=== PATIENT | female | born 1980 | race Caucasian/White ===

== ENCOUNTER 2018-01-26 10:58 | Inpatient (IN) | payer OTHER ==
--- NOTE | 2018-01-26 11:47 | HP ---
General Information - General Information Maternal Age: 37 Grav: 2 Para: 1 SAB: 0 IEA: 0 Estimated Due Date: 01/12/18 Determined By: LMP Gestational Age in Weeks and Days: 42 Weeks and 0 Days Maternal Blood Type and Rh: O Positive - Results this Serology/RPR Result: Non-Reactive Rubella Result: Immune HBsAg Result: Negative HIV Result: Negative GBS Culture Result: Negative Past Medical History Delivery History: Hx Uncomplicated Vaginal Delivery Delivery History Comment: 2015 6lb 4oz female at [facility] [place] by Radha Segal LM Pertinent Past Medical History: See Records Past Medical History Comment: Asthma - no current medications Migraine Breast lump. Mammogram done 2015 WNL Seasonal allergies Hx depression/anxiety - no current medications Pertinent Past Surgical History: See Records Past Surgical History Comment: Hymen removal Tympanostomy tube insertion Pertinent Family History: See Records Family History Comment: Mother: Breast cancer, depression Father: Thrombotic micro angiopathy, antiphospholipid syndrome Sister: Thyroid PGF: degenerative hips MGM: HTN, polio MGF: Leukemia. due to pneumonia - Antepartal Records Antepartal Records: Reviewed, Uncomplicated - AMA age 37 at [facility]. NIPT/ MSAFP WNL. Post-dates Review of Systems Constitutional: Comfortable CV Complaint: No Respiratory: Shortness of Breath: No Gastrointestinal: No Nausea/Vomiting, Normal Bowel Movement Genitourinary: No Leaking Fluid Musculoskeletal: No Complaint Neurological: No Headache, No Visual Changes Movement: Normal Exam Allergies/Adverse Reactions: Allergies MS Sulfa Antibiotics [Sulfa Antibiotics] Adverse Reaction (Intermediate, Verified 04/15/16 19:57) Nausea And Vomiting BP: 131/75 HR: 87 T: 98.3 RR: 18 SpO2: 100% on RA - Measurements Height: 5 ft 6 in Weight: 208 lb Weight in lbs: [id number] Body Mass Index (BMI): 33.5 Pre- Weight: 170 lb Weight Gained This : 38 lbs and 0 ozs - Exam Abdomen: No Upper Quadrant Pain Breast: Breast Exam Deferred CVA: No CVA Tenderness Extremities: No Edema Heart: Normal Rhythm/Heart Sounds HEENT: No Significant Findings Lungs: Clear Bilaterally Rectal: Rectal Exam Deferred Reflexes: DTR 2+ Thyroid: No Thyromegaly - Abdominal Exam Abdomen Exam: Non-Tender - Ultrasound/Biophysical Profile Ultrasound Status: Not Done Targeted Exam Findings See L&D Outpatient Visit Provider Note for Findings: N/A Estimated Weight: 7.5-8lbs by Reinaldo Cervical Exam: 3cm Effacement: 80% Station: -1 Presenting Part: Vertex Membrane Status: Intact Sterile Speculum Exam: not done Bleeding/Discharge: None EFM Findings - External Monitor Findings Baseline Heart Rate: 135 External Monitor Findings: Accelerations Present, No Pattern of Variable or Late Decelerations - Isolated variable decel x 1. Recovered, Variability Moderate, Baseline Stable External Monitor Findings Comment: Category II FHT. Doubt metabolic acidemia. Bears close watching Contractions: Irregular, Mild Assessment/Plan - Reason for Visit Reason for Visit: IUP at 42 weeks here for postdates induction - Obstetrical Risk Factors Obstetrical Risk Factors: Post-Dates - Plan Plan: Induction Plan Comment: PARQ IV Pitocin induction vs. amniotomy. At this time pt and FOB agree to IV pitocin per low dose protocol. No strong plans. Will request pain mgmt if desired. Anticipate . Dr. Jeter aware of pt presence and condition. Agrees with plan to proceed with induction - Date/Time of Admission Date of Admission: 01/26/18 Time of Admission: 11:40
[2018-01-26] MEDS ORDERED: Oxytocin in LR* 20 UNITS/1,000 ML BAG IVPB SCH ×2 (12:00→19:00)
[2018-01-26 12:29] LABS: ABS Basophils 0 10^3/ul (0-0.2); ABS Eosinophils 0 10^3/ul (0-0.6); ABS Lymphocytes 1.5 10^3/ul (1.0-4.8); ABS Monocytes 0.5 10^3/ul (0-0.8); ABS Neutrophils 5.5 10^3/ul (1.5-7.7); ABS Nucleated RBC 0 10^3/ul; Eosinophil % 0.5 % (0-6); Hematocrit 37 % (35-47); Hemoglobin 12.7 g/dl (12.0-16.0); Lymphocyte % 19.9 % (25-47); Mean Corpuscular HGB Conc 34 g/dl (31-36); Mean Corpuscular Hemoglobin 30 pg (27-31); Mean Corpuscular Volume 87 fL (80-97); Mean Platelet Volume 9.5 um3 (7.4-10.4); Nucleated Red Blood Cells % 0.1; Platelet Count 172 10^3/ul (150-450); Red Blood Count 4.26 10^6/ul (4.00-5.40); Red Cell Distribution Width 16 % (10.5-15); White Blood Count 7.6 10^3/ul (3.5-10.8)
[2018-01-26] MEDS ORDERED: Ondansetron INJ* 2 MG/ML VIAL IV PRN (15:09)
[2018-01-26] MEDS ORDERED: OBEPIDURAL* 250 ML EPIDURAL ONE (15:37)
[2018-01-26] MEDS ORDERED: Phenylephrine IV* 40 MCG/ML 10 ML SYRINGE ONE (16:03)
[2018-01-26] MEDS ORDERED: EPHEDrine (Pressors)* 50 MG/ML VIAL IV PUSH PRN ×2 (16:41)
[2018-01-26] MEDS ORDERED: Sodium Citrate/Citric Acid* 15 ML UDC PO PRN (16:41)
[2018-01-26] MEDS ORDERED: Phenylephrine IV* 40 MCG/ML 10 ML SYRINGE IV PUSH PRN ×2 (16:41)
[2018-01-26] MEDS ORDERED: Famotidine TAB* 20 MG PO PRN (16:41)
[2018-01-26] MEDS ORDERED: OBEPIDURAL* 250 ML EPIDURAL SCH (17:00)
[2018-01-26] MEDS ORDERED: Misoprostol TAB* 200 MCG PR ONE (18:33)
[2018-01-26] MEDS ORDERED: Witch Hazel PAD* JAR TOPICAL PRN (18:33)
[2018-01-26] MEDS ORDERED: Glycerin ADULT SUPP PR PRN (18:33)
--- NOTE | 2018-01-26 18:40 | PROCNOTE ---
[facility] OB: Delivery Note - Delivery A Date of : 01/26/18 Time of : 17:59 [place] Sex: Male Score 1 Minute: 8 Score 5 Minutes: 9 Gestational Age in Weeks and Days at Delivery: 42 Weeks and 0 Days Delivery Method: Spontaneous Vaginal Labor: Induced Did Patient attempt ?: N/A, No Previous Amniotic Fluid: Clear Estimated Blood Loss: 450 Anesthesia/Analgesia: CEI for Labor Anesthesia Comment: Dr. Wall Delivered By: Divya Harris - JAKE - Nursery Level of Nursery: Regular/Bedside - Perineum Perineal Injury: 2nd Degree Perineal Injury Comment: 3-0 Rapide under local infiltration 1% lidocaine and epdiural analgesia Perineal Repair: By Delivering Practioner - Events Delivery Events of Note: Pitocin During Labor, Supplemental O2 to Mother, Post- Bleeding - Meds Given, Other - Category II FHT with pushing. Decels down to 80's. Moderate variability maintained. Pt pushed effectively x 15 min - Additional Delivery Notes Additional Delivery Notes: Pt admitted for postdates 42 week induction. IV pitocin led to spontaneous rupture of clear membranes with expected progression to complete. Length of labor 5 hours, 5 min. Pushed x 15 min. liveborn male. Slow, controlled delivery of head. OA to CHRIS. Shoulders followed easily with maternal push. vigorous with spontaneous cry. HR>110bpm. Delivered to maternal abdomen. Cord clamped x 2 and cut by pt when pulsations ceased. Spontaneous delivery intact placenta. Membranes complete. Fundus slow to firm with massage and IV pitocin infusing. After continued gushes of blood 800mcg Cytotec given per rectum x 1. Fundus firmed to massage and remained firm. Bleeding resolved. Repair as above. EBL 450mL. At time of note mother and in stable condition. Planning to breast feed.
[2018-01-26] MEDS ORDERED: Simethicone TAB* 80 MG TAB.CHEW PO SCH (21:00)
[2018-01-26] MEDS: Ibuprofen TAB* 600 MG PO PRN (22:04)
[2018-01-26] MEDS: Docusate CAP* 100 MG PO SCH (22:04)
[2018-01-26] MEDS: Dibucaine 1% 28.35 GM TUBE PR PRN (22:04)
[2018-01-27] MEDS: Acetaminophen TAB* 325 MG PO PRN ×4 (03:52→21:05)
[2018-01-27] MEDS: Ibuprofen TAB* 600 MG PO PRN ×4 (03:52→22:26)
[2018-01-27 07:30] LABS: ABS Basophils 0.1 10^3/ul (0-0.2); ABS Eosinophils 0 10^3/ul (0-0.6); ABS Lymphocytes 1.8 10^3/ul (1.0-4.8); ABS Monocytes 0.8 10^3/ul (0-0.8); ABS Neutrophils 7.3 10^3/ul (1.5-7.7); ABS Nucleated RBC 0 10^3/ul; Eosinophil % 0.4 % (0-6); Hematocrit 35 % (35-47); Hemoglobin 12.4 g/dl (12.0-16.0); Lymphocyte % 17.7 % (25-47); Mean Corpuscular HGB Conc 35 g/dl (31-36); Mean Corpuscular Hemoglobin 30 pg (27-31); Mean Corpuscular Volume 86 fL (80-97); Mean Platelet Volume 8.9 um3 (7.4-10.4); Nucleated Red Blood Cells % 0; Platelet Count 145 10^3/ul (150-450); Red Cell Distribution Width 16 % (10.5-15)
[2018-01-27] MEDS ORDERED: Ferrous Gluconate TAB* 324 MG TAB PO SCH (09:00)
[2018-01-27] MEDS: Docusate CAP* 100 MG PO SCH ×3 (09:05→21:00)
--- NOTE | 2018-01-27 13:56 | PTEDU ---
Patient Name: CATALINA AMBROSE CATALINA AMBROSE selected video: BBOB: Nurturing Your Gorgeous &Growing Baby by to giorgio rivas on 01/27/2018 at 1:55:19 PM from [id number]
[2018-01-27] MEDS: Dibucaine 1% 28.35 GM TUBE PR PRN (18:58)
--- NOTE | 2018-01-28 07:28 | PTEDU ---
Patient Name: CATALINA AMBROSE CATALINA AMBROSE selected video: BBOB: Bonding Through Massage to view on 01/28/2018 at 7:27: 29 AM [id number]
[2018-01-28] MEDS: Ibuprofen TAB* 600 MG PO PRN (07:53)
[2018-01-28 07:59] VITALS: BP 109/70
[2018-01-28] MEDS: Docusate CAP* 100 MG PO SCH (09:19)
== END 2018-01-28 13:45 | disposition home or self-care (01) | DRG 775 ==
LOC: MCHOBOUT 10:58 → MCHOB 11:26
PROVIDERS: ADMIT Midwife; ATTEND Midwife
PROC: 10E0XZZ Delivery of Products of Conception, External Approach (ICD-10-PCS; principal; 2018-01-26)
PROC: 0KQM0ZZ Repair Perineum Muscle, Open Approach (ICD-10-PCS; 2018-01-26)
PROC: 3E033VJ Introduction of Other Hormone into Peripheral Vein, Percutaneous Approach (ICD-10-PCS; 2018-01-26)
DX: O48.0 Post-term pregnancy (principal); O70.1 Second degree perineal laceration during delivery; O99.344 Other mental disorders complicating childbirth; F41.8 Other specified anxiety disorders; Z37.0 Single live birth; Z3A.42 42 weeks gestation of pregnancy; Z88.2 Allergy status to sulfonamides
CPT/HCPCS: 36415; 85025; 86850; 86900; 86901; A9270-GY; J2405

== ENCOUNTER 2024-06-09 13:48 | Inpatient (IN) ==
[2024-06-09] MEDS ORDERED: Lidocaine 1% VIAL 10 MG/ML 30 ML VIAL INJ PRN (14:52)
[2024-06-09] MEDS ORDERED: Calcium Carb (TUMS) 500 mg CHEW TAB PO PRN (15:05)
[2024-06-09] MEDS ORDERED: Ondansetron 4 mg VIAL 2 MG/ML 2 ml VIAL IV PRN (15:05)
[2024-06-09] MEDS: miSOPROStol 100 mcg TAB VAGINAL ONE ×2 (15:56→20:11)
[2024-06-09 16:40] LABS: ABS Eosinophils 0.1 10^3/uL (0.0-0.5); ABS Lymphocytes 1.7 10^3/uL (1.0-4.8); ABS Monocytes 0.8 10^3/uL (0.0-0.9); ABS Neutrophils 7.1 10^3/uL (1.5-7.6); Eosinophil % 0.8 %; Hematocrit 35.9 % (35-45); Hemoglobin 12.4 g/dL (11.5-14.3); Lymphocyte % 17.6 %; Mean Corpuscular Hemoglobin 30.5 pg (27-33); Mean Corpuscular Hgb Conc 34.5 g/dL (31-36); Mean Corpuscular Volume 88.5 fL (80-97); Mean Platelet Volume 8.6 fL (7.5-11.2); Platelet Count 201 10^3/uL (150-450); Red Blood Count 4.05 10^6/uL (3.63-4.92); Red Cell Distribution Width 14.6 % (12-17); White Blood Count 9.7 10^3/uL (3.8-11.8)
[2024-06-09 17:03] LABS: Urine Benzodiazepine Screen None Detected (None Detect); Urine Cannabinoids Screen None Detected (None Detect); Urine Opiates Screen None Detected (None Detect)
[2024-06-09] MEDS: Dinoprostone 10 MG VAG.SUPP VAGINAL ONE (21:36)
[2024-06-10] MEDS: Nalbuphine 10 MG/ML 1 ML VIAL IV PRN (03:18)
[2024-06-10] MEDS: Lactated Ringers 1000 ml BAG 1,000 ML IV SCH (14:53)
[2024-06-10] MEDS ORDERED: Dexamethasone IV 4 MG/ML VIAL 1 ml VIAL ONE (15:18)
[2024-06-10] MEDS ORDERED: Ondansetron 4 mg VIAL 2 MG/ML 2 ml VIAL ONE ×2 (15:18→22:38)
[2024-06-10] MEDS ORDERED: Oxytocin 10 UNITS/ML 1 ML VIAL ONE ×2 (15:18→22:37)
[2024-06-10] MEDS ORDERED: Morphine PF AMP (0.5MG/ML) 5 MG/10 ML AMP ONE ×2 (15:18→23:08)
[2024-06-10] MEDS ORDERED: Phenylephrine 40 mcg/mL 10mL (400mcg) SYRINGE ONE (15:28)
[2024-06-10] MEDS: Oxytocin in LR 20,000 MILLI.UNIT/1,000 ML BAG IV SCH (16:00)
[2024-06-10] MEDS: Lactated Ringers 1000 ml BAG 1,000 ML IV ONE (19:04)
[2024-06-10] MEDS: OBEPIDURAL (200 ML) 200 ML EPIDURAL ONE ×2 (19:45→21:31)
[2024-06-10] MEDS ORDERED: Phenylephrine 40 mcg/mL 10mL (400mcg) SYRINGE IV PUSH PRN ×2 (20:03)
[2024-06-10] MEDS: Lidocaine 1.5% EPI 1:200,000 30 ML SDV ONE (21:29)
[2024-06-10] MEDS ORDERED: fentaNYL 100 mcg/2 ml 50 MCG/ML VIAL ONE (22:18)
[2024-06-10] MEDS ORDERED: Phenylephrine IV 10 MG/ML 1 ml VIAL ONE (22:20)
[2024-06-10] MEDS ORDERED: Metoclopramide 5 MG/ML VIAL (10 mg) ONE (22:37)
[2024-06-10] MEDS: Sodium Citrate/Citric Acid LIQ 15 ML UDC PO PRN (22:46)
[2024-06-10 22:59] LABS: Urine Appearance Clear; Urine Bilirubin Negative (Negative); Urine Blood Negative (Negative); Urine Color Light-Yellow; Urine Glucose 4+ (>=1000 mg/dL) (Negative); Urine Ketones Negative (Negative); Urine Nitrite Negative (Negative); Urine Protein Negative (Negative); Urine Specific Gravity 1.011 (1.002-1.030); Urine Urobilinogen Negative (Negative)
[2024-06-10] MEDS ORDERED: Acetaminophen IV 1 GM/100ML 1,000 MG/100 ML BAG IV ONE (23:08)
[2024-06-10] MEDS: Methylergonovine 0.2 mg AMPULE 1 ml AMP ONE (23:24)
[2024-06-10] MEDS ORDERED: Acetaminophen IV 1 GM/100ML 1,000 MG/100 ML BAG IV PRN (23:31)
[2024-06-10] MEDS ORDERED: Ondansetron 4 mg VIAL 2 MG/ML 2 ml VIAL IV PRN (23:31)
[2024-06-10] MEDS ORDERED: Naloxone 0.4 mg VIAL 0.4 mg/ml 1 ml VIAL IV PUSH PRN (23:31)
[2024-06-10] MEDS ORDERED: Metoclopramide 5 MG/ML VIAL (10 mg) IV PRN (23:31)
[2024-06-11] MEDS ORDERED: Glycerin ADULT 2.4 gm SUPP PR PRN (00:15)
[2024-06-11] MEDS ORDERED: Witch Hazel PAD JAR TOPICAL PRN (00:15)
[2024-06-11] MEDS ORDERED: Dibucaine 1% OINT 28.35 GM TUBE PR PRN (00:15)
[2024-06-11] MEDS ORDERED: Lactated Ringers 1000 ml BAG 1,000 ML IV SCH (01:00)
[2024-06-11] MEDS: Lidocaine 2% w/ EPI 1:200,000 MPF 20 ML SDV VIAL ONE (05:46)
[2024-06-11] MEDS: Lactated Ringers 1000 ml BAG 1,000 ML IV ONE (05:46)
[2024-06-11] MEDS: ceFOXitin 2 GM IVPREMIX 2 GM/50 ML BAG IVPB ONE (05:46)
[2024-06-11] MEDS: OBEPIDURAL (200 ML) 200 ML EPIDURAL SCH (05:46)
[2024-06-11] MEDS: Lactated Ringers 1000 ml BAG 1,000 ML IV SCH ×2 (07:43)
[2024-06-11] MEDS: Phenylephrine 40 mcg/mL 10mL (400mcg) SYRINGE ONE (07:45)
[2024-06-11] MEDS: Vitamins A & D OINT TUBE TOPICAL SCH (20:28)
[2024-06-11] MEDS: Oxytocin in LR 20,000 MILLI.UNIT/1,000 ML BAG IV SCH (22:25)
[2024-06-11] MEDS: Buffered Lidocaine 1% SYRIN 1 ml INTRADERM ONE (22:30)
[2024-06-12 07:05] LABS: ABS Basophils 0.1 10^3/uL (0.0-0.1); ABS Eosinophils 0.2 10^3/uL (0.0-0.5); ABS Lymphocytes 1.4 10^3/uL (1.0-4.8); ABS Monocytes 0.7 10^3/uL (0.0-0.9); ABS Neutrophils 6.3 10^3/uL (1.5-7.6); Eosinophil % 1.8 %; Hematocrit 29.7 % (35-45); Hemoglobin 10.2 g/dL (11.5-14.3); Lymphocyte % 15.9 %; Mean Corpuscular Hemoglobin 30.8 pg (27-33); Mean Corpuscular Hgb Conc 34.4 g/dL (31-36); Mean Corpuscular Volume 89.5 fL (80-97); Mean Platelet Volume 8.4 fL (7.5-11.2); Platelet Count 146 10^3/uL (150-450); Red Blood Count 3.32 10^6/uL (3.63-4.92); Red Cell Distribution Width 14.7 % (12-17); White Blood Count 8.6 10^3/uL (3.8-11.8)
[2024-06-13 08:05] VITALS: BP 118/72
== END 2024-06-13 14:05 | disposition home or self-care (01) | DRG 787 ==
LOC: MCHOBOUT 13:48 → MCHOB 13:58
PROVIDERS: ATTEND Obstetrics & Gynecology